=== PATIENT | male | born 1995 ===

== ENCOUNTER → 2020-07-30 08:05 | Outpatient (CLI) | payer OTHER, SELFPAY ==
--- NOTE | 2020-07-30 | DI.MRI.S_ITS ---
PROCEDURE: MR LUMBAR SPINE WO CON INDICATIONS: Low back pain TECHNIQUE: Noncontrast sagittal T1 spin echo and T2 fast echo, sagittal STIR, axial T1 and T2 fast spin echo through the lumbar spine. In cases with scoliosis, additional coronal T2 fast spin echo may be performed. COMPARISON: None. FINDINGS: Image quality: Excellent. Alignment and Curvature: No plain films are available for comparison, for numbering purposes. Thus, for the purposes of this examination, 5 lumbar type vertebral bodies will be presumed, as denoted on the montage panel. This should be confirmed and correlated with plain films, prior to any lumbar spinal intervention. There is loss of normal lumbar lordosis. Alignment is otherwise normal. Bone Marrow: Marrow is of normal overall signal. No acute vertebral body compression fractures. L4 hemangioma. Spinal Cord: Conus medullaris terminates at the upper L2 level. Visualized cord demonstrates normal signal and size. Paraspinous Soft Tissues: No paravertebral masses. T12-L1: Normal appearance. L1-L2: Normal appearance. L2-L3: Normal appearance. L3-L4: Normal appearance. L4-L5: Mild facet and ligamentum flavum hypertrophy. No significant canal, or foraminal stenosis.. L5-S1: Mild diffuse disc bulge. No significant canal, or foraminal stenosis. IMPRESSION: 1. Loss of normal lumbar lordosis, consistent with muscle spasm. Otherwise essentially normal lumbar spine MRI. No neural impingement. Dictated by: Nay Manzano M.D. on 07/30/2020 at 9:29 Approved by: Nay Manzano M.D. on 07/30/2020 at 9:32
== END ==
DX: M54.5 Low back pain (principal)
CPT/HCPCS: 72148